=== PATIENT | female | born 1960 | race Caucasian/White ===

== ENCOUNTER 2025-03-09 12:50 | Emergency (ER) | payer MEDICARE, OTHER ==
[~2025-03-09] VITALS: Ht 157.5 cm; Wt 71.7 kg
[2025-03-09 12:51] VITALS: BP 172/90
[2025-03-09] MEDS ORDERED: METO-356 PO (13:04)
[2025-03-09] MEDS ORDERED: LOSA25TA27 PO (13:04)
[2025-03-09 13:21] LABS: PLATELET COUNT (AUTO) 272 K/uL (179-408); RED BLOOD CELL COUNT(AUTO) 4.99 MIL/uL (3.63-4.92); RED CELL DISTRIBUTION WIDTH 14.0 % (12.3-17.7); WHITE BLOOD COUNT (AUTO) 5.1 K/uL (3.8-11.8)
[2025-03-09 13:36] LABS: CREATININE 0.7 mg/dL (0.6-1.3); SODIUM SERUM 136 mmol/L (136-145); UREA NITROGEN, BLOOD 12 mg/dL (7-18)
[2025-03-09 15:28] VITALS: BP 156/88; TEMP 97; O2SAT 97
== END 2025-03-09 15:29 | disposition home or self-care (01) ==
LOC: ER 12:50
DX: R00.2 Palpitations (principal); I11.9 Hypertensive heart disease without heart failure
CPT/HCPCS: 36415; 71045; 83735; 84100; 84443; 84484; 85025; A4606; A4663